=== PATIENT | male | born 1960 | race Caucasian/White ===

== ENCOUNTER 2021-01-04 16:26 | Emergency (ER) | payer MEDICARE, SELFPAY ==
--- NOTE | 2021-01-04 17:02 | ED.GENADULT ---
HPI - General Adult General Chief complaint: Urogenital-Male Stated complaint: urination and kidney issues Source: patient Mode of arrival: ambulatory Limitations: no limitations History of Present Illness HPI narrative: Jimmy is a 60M with a PMH of DMII, gastroparesis, HTN, HLD, BPH, insomnia and anxiety that presented to the ED with urinary concerns. He has trouble describing them. He says it hurts to pee, he has a decrease in his stream, and cannot get it started, and he has low back pain with it. No red flag symptoms reported. He denies hematuria. It has been getting worse for the last few days. He also reports that he has had a decreasing appetite for a week or so. He denies fevers, chills, nausea, vomiting, diarrhea, CP and SOB. Related Data Allergies Allergy/AdvReac Type Severity Reaction Status Date / Time No Known Allergies Allergy Verified 01/04/21 17:03 Review of Systems Constitutional: Constitutional: Reports no additional constitutional complaints Eyes: Eyes: Reports no additional eye complaints ENT: Reports system reviewed and no additional complaints, except as documented Cardiovascular: Cardiovascular: Reports no additional cardiovascular complaints Respiratory: Respiratory: Reports no additional respiratory complaints Gastrointestinal: Gastrointestinal: Reports no additional gastrointestinal complaints Genitourinary: Genitourinary: Reports as per HPI Musculoskeletal: Musculoskeletal: Reports no additional musculoskeletal complaints Integumentary/Breasts: Skin/Breast: Reports system reviewed and no additional complaints, except as docu Neurologic: Reports system reviewed and no additional complaints, except as documented Psychiatric: Psychiatric: Reports no additional psychiatric complaints Endocrine: Endocrine: Reports no additional endocrine complaints Hematologic/Lymphatic: Hematologic/Lymphatic: Reports no additional hematologic/lymphatic complaints Allergic/Immunologic: Allergic/Immunologic: Reports no additional allergic/immunologic complaints Exam Const: General: no acute distress and alert Orientation/consciousness: patient oriented x3 Limitations: No altered mental status HENMT: Head: normal to inspection Other: atraumatic Eyes: Conjunctivae: conjunctivae normal Pupils: Equal, round and reactive pupils present Neck: Neck: normal visual inspection Chest: Chest palpation & inspection: normal inspection of the chest Resp: Effort & Inspection: normal respiratory effort Auscultation: clear to auscultation bilaterally Cardio: Rate: regular rate Rhythm: regular rhythm GI: Inspection: non-distended GI Palp: Yes Soft to palpation and No Guarding due to palpation present (GI) Other: Suprapubic tenderness Skin: General skin exam: normal color Rashes: no rashes Neuro: General: patient oriented x3, moves all extremities and no focal motor deficits Other: normal strength in the lower extremities Extrem: General: normal to inspection Psych: Mental Status: mental status grossly normal Course Course Emergency Course: Jimmy was evaluated. Ordered UA and labs. Labs were largely unremarkable. I discussed this with him. He was instructed to establish with a regular doctor and to get a referral to GI as his lack of appetite is likely form his gastroparesis. His UA showed no signs of infection. Post void bladder scan showed only 13ml. Vital Signs Vital signs: Vital Signs Temperature 97.8 F 01/04/21 17:04 Pulse Rate 92 01/04/21 17:04 Respiratory Rate 16 01/04/21 17:04 Blood Pressure 158/84 H 01/04/21 17:04 Pulse Oximetry 94 01/04/21 17:04 Temperature 97.8 F 01/04/21 17:04 Pulse Rate 72 01/04/21 18:14 Respiratory Rate 18 01/04/21 18:14 Blood Pressure 147/93 H 01/04/21 18:14 Pulse Oximetry 96 01/04/21 18:14 Medical Decision Making Vital Signs Vital Signs: Vital Signs Temperature 97.8 F 01/04/21 17:04 Pulse Rate 92 01/04/21 17:
[2021-01-04 17:04] VITALS: BP 158/84; PULSE 92; RESP 16; TEMP 36.6; O2SAT 94
[2021-01-04 17:09] LABS: Appearance Urine Clear (Clear); Bilirubin Urine Negative (Negative); Color Urine Light Yellow (Yellow); Glucose Urine UA Negative (Negative); Ketones Urine 1+ (Negative); Leukocyte Esterase Ur Negative (Negative); Nitrate Urine Negative (Negative); Protein Urine Negative (Negative); Urobilinogen Urine 0.2 mg/dL (0.2-1.0)
[2021-01-04 17:18] LABS: Add Urine Microscopic? YES; Bacteria Urine Trace /hpf; Blood Urine Trace-Intact (Negative); RBC Urine 0-2 /hpf (0-2); Squamous Epithelial Cell Urine Rare /hpf (Few); WBC Urine None seen /hpf (0-3)
[2021-01-04 17:18] LABS: Basophils Absolute Auto 0.03 K/mm3 (0.00-0.10); Basophils Percent Auto 0.6 % (0.0-1.0); Eosinophils Absolute Auto 0.06 K/mm3 (0.02-0.50); Eosinophils Percent Auto 1.3 % (1.0-6.0); Hematocrit 40.6 % (40.0-54.0); Hemoglobin 13.8 g/dL (14.0-18.0); Immature Granulocyte Absolute 0.01 K/mm3 (0.00-0.00); Immature Granulocyte Percent A 0.2 % (0.0-0.0); Lymphocytes Absolute Auto 1.45 K/mm3 (1.10-4.50); Lymphocytes Percent Auto 31.1 % (18.0-42.0); Mean Corpuscular Hemoglobin 32.1 pg (27.0-31.0); Mean Corpuscular Volume 94.4 fL (78.0-102.0); Mean Platelet Volume 9.9 fl (8.7-11.0); Monocytes Absolute Auto 0.35 K/mm3 (0.10-0.90); Monocytes Percent Auto 7.5 % (2.0-11.0); Neutrophils Absolute Auto 2.8 K/mm3 (1.7-7.2); Neutrophils Percent Auto 59.3 % (50.0-70.0); Platelet Count Result 143 K/mm3 (150-420); White Blood Count 4.7 K/mm3 (4.8-10.8)
[2021-01-04 17:33] LABS: Alanine Aminotransferase 26 U/L (16-63); Albumin Level 3.9 g/dL (3.4-5.0); Alkaline Phosphatase 74 U/L (46-116); Anion Gap 13 mmol/L (8-16); Aspartate Amino Transferase 25 U/L (15-37); Bilirubin,Total 0.9 mg/dL (0.00-1.00); Blood Urea Nitrogen 12 mg/dL (7-18); Calcium 8.8 mg/dL (8.5-10.1); Carbon Dioxide 26 mmol/L (21-32); Chloride 101 mmol/L (98-108); Estimated CRCL calculation 63 ml/min; Estimated Glomerular Filt Rate 54; Glucose 87 mg/dL (70-99); Osmolality Calculated 288 mOsm/kg (285-295); Potassium 3.3 mmol/L (3.5-5.1); Sodium 140 mmol/L (136-145); Total Protein 7.4 g/dL (6.4-8.2)
[2021-01-04 17:48] LABS: Prostate Specific Antigen < 0.1 ng/mL (< OR = 4.0)
[2021-01-04 18:14] VITALS: BP 147/93; PULSE 72; RESP 18; O2SAT 96
== END 2021-01-04 18:23 | disposition home or self-care (01) ==
PROVIDERS: Emergency Provider Family Medicine
DX: K31.84 Gastroparesis (principal); R30.0 Dysuria; I10 Essential (primary) hypertension; E78.5 Hyperlipidemia, unspecified; N40.0 Benign prostatic hyperplasia without lower urinary tract symptoms
CPT/HCPCS: 36415; 80053; 81001; 84153; 85025; 99282; 99283